=== PATIENT | female | born 1965 | race Hispanic/Latino ===

== ENCOUNTER 2020-02-27 21:34 | Emergency (ER) | payer MEDICAID, SELFPAY ==
--- NOTE | ~2020-02-27 | XR_ITS ---
EXAMINATION: XR knee LT 3V EXAM DATE: 02/27/2020 21:57 INDICATION: No known recent injury provided at this time. Pain of the left knee. TECHNIQUE: Three projections of the left knee. There is no prior study for comparison. FINDINGS: No evidence osteochondral defect or joint body in the left knee joint. There is mild to m oderate patellofemoral compartment primary osteoarthritis. No evidence of joint effusion. There are no acute fractures or dislocations identified. There is no subcutaneous gas. The soft tissue is unr emarkable. There are no radiopaque foreign bodies. IMPRESSION: Mild to moderate left patellofemoral compartment osteoarthritis. Reviewed, dictated and finalized at location A.
[2020-02-27 21:36] VITALS: BP 155/96; PULSE 113; RESP 20; TEMP 35.7; O2SAT 100
--- NOTE | 2020-02-27 21:54 | ED.LOWEXIN ---
HPI - Extremity Injury (Lower) General Chief Complaint: Extremity Injury, Lower Stated Complaint: l leg pain Time Seen by Provider: 02/27/20 21:49 History of Present Illness HPI Narrative: Patient presents to the ED with left knee pain. She was walking down the steps today and she felt a pop. The pain is tolerable when she is not weightbearing. Pain is worse when she is walking. She lives in [place] and is in the area for presentation. She has a history of hypertension. She has never had a surgery. She works as a maintenance specialist. She does not smoke cigarette,, or do drugs. Related Data Home Medications Medication Instructions Recorded Confirmed desvenlafaxine succinate [Pristiq] 100 mg PO DAILY 02/27/20 02/27/20 folic acid 1 mg PO DAILY 02/27/20 02/27/20 metformin 500 mg PO DAILY 02/27/20 02/27/20 spironolactone 100 mg PO DAILY 02/27/20 02/27/20 Allergies Allergy/AdvReac Type Severity Reaction Status Date / Time Iodine and Iodide Containing Allergy Rash Verified 02/27/20 21:40 Produc Review of Systems Review of Systems: Narrative: CONSTITUTIONAL: Denies fever, chills, or sweats. EYES: Denies visual changes, redness, or discharge. ENT: Denies rhinorrhea, congestion, sore throat, or otalgia. CARDIOVASCULAR: Denies chest pain, palpitations, or edema. RESPIRATORY: Denies cough or dyspnea. GASTROINTESTINAL: Denies abdominal pain, nausea, vomiting, or diarrhea. GENITOURINARY: Denies dysuria or hematuria. SKIN: Denies rash or itching. MUSCULOSKELETAL: Denies back pain, she has left knee pain NEUROLOGIC: Denies headache, numbness, or weakness. PSYCHIATRIC: Denies anxiety or depression. All systems reviewed & are unremarkable except as noted in HPI and below PMFSH Past Medical History Medical History (Updated 02/27/20 @ 22:20 by Alta Lopez MD) Hypertension Overweight Surgical History Surgical History (Updated 02/27/20 @ 22:20 by Alta Lopez MD) No pertinent past surgical history Social History Social History (Updated 02/27/20 @ 22:21 by Alta Lopez MD) Smoking status: Never smoker Alcohol intake: never Substance use: never Gender identity (if verbalized by the patient): Female Exam Narrative: Exam Narrative: GENERAL: Well-appearing, well-nourished, and in no acute distress. HEAD: Normocephalic, atraumatic. EYES: PERRLA and EOMI. ENT: Nares clear, no rhinorrhea or epistaxis. Mucous membranes moist. NECK: Supple. CHEST: Clear to auscultation. No respiratory distress. HEART: Regular rate and rhythm. No murmur heard. Normal peripheral pulses. ABDOMEN: Soft, nontender, nondistended, normal active bowel sounds. EXTREMITIES: Decreased range of motion with the left knee and some swelling and tenderness.. SKIN: Warm, dry, no rash. NEURO: No focal deficits. Alert and oriented x3. PSYCH: Normal mood and affect. Course Vital Signs Vital signs: Vital Signs Temperature 96.2 F L 02/27/20 21:36 Pulse Rate 113 H 02/27/20 21:36 Respiratory Rate 02/27/20 21:36 Blood Pressure 155/96 H 02/27/20 21:36 Pulse Oximetry 100 02/27/20 21:36 Temperature 96.2 F L 02/27/20 21:36 Pulse Rate 113 H 02/27/20 21:36 Respiratory Rate 02/27/20 21:36 Blood Pressure 155/96 H 02/27/20 21:36 Pulse Oximetry 100 02/27/20 21:36 MDM - Extremity Injury (Lower) Medical Records Attestation: I reviewed the patient's medical records. Discharge Plan Discharge Clinical Impression: Arthritis of knee, left Internal derangement of knee Qualifiers: Laterality: left Qualified Code(s): M23.92 - Unspecified internal derangement of left knee Patient Disposition: Home, Self-Care Condition: Stable Additional Instructions: Yes call your doctor when you get back to [place] and ask for the orthopedic doctor that specializes in knees. Your own PCP can order the MRI of your left knee. Prescriptions: New hydrocodone-acetaminophen [Norden] 5-325 mg tablet 1 tabl
--- NOTE | 2020-02-27 22:33 | PC.NURSE ---
Left Knee immobiler placed per MD order. Pt educated on use and application. Pt verbalized understanding of use and education. PMS intact before and after placement.
[2020-02-27 22:43] VITALS: BP 153/95; PULSE 92; RESP 16; O2SAT 97
== END 2020-02-27 22:49 | disposition home or self-care (01) ==
PROVIDERS: Emergency Provider Emergency Medicine
DX: M23.92 Unspecified internal derangement of left knee (principal); I10 Essential (primary) hypertension; E66.3 Overweight; Z68.42 Body mass index [BMI] 45.0-49.9, adult; M17.12 Unilateral primary osteoarthritis, left knee
CPT/HCPCS: 73562; 99283